=== PATIENT | male | born 1980 | race Caucasian/White ===

== ENCOUNTER 2023-07-05 18:07 | Outpatient (REF) | payer OTHER, SELFPAY ==
[2023-07-05 15:26] LABS: ALT 63 U/L (16-63); AST 34 U/L (15-37); Alkaline Phosphatase 69 U/L (46-116); Anion Gap 8.2 mmol/L (3-11); BUN 14 mg/dL (7-18); Bilirubin, Total 0.4 mg/dL (0.2-1.0); CO2 27.8 mmol/L (21.0-32.0); Calcium 9.2 mg/dL (8.5-10.1); Calculated LDL 109 mg/dL (<100); Chloride 99 mmol/L (98-107); Cholesterol 152 mg/dL (<200); Estimated GFR 97.58 (mL/min/1.73m2); Glucose 96 mg/dL (74-106); HDL Cholesterol 29 mg/dL (40-60); Lipase 23 U/L (16-77); Potassium 4.3 mmol/L (3.5-5.1); Sodium 135 mmol/L (136-145); Total Protein 6.9 g/dL (6.4-8.2); Triglyceride 71 mg/dL (<150)
[2023-07-06 10:22] LABS: Hepatitis C Ab w Rflx HCV PCR Negative (Negative)
[2023-07-06 10:38] LABS: HIV-1/2 Ag & Ab Screen Negative (Negative)
== END 2023-07-05 18:08 | disposition home or self-care (01) ==
LOC: NCHCN 18:07
PROVIDERS: Visit Provider Nurse Practitioner Family
DX: Z00.00 Encounter for general adult medical examination without abnormal findings (principal); R10.9 Unspecified abdominal pain; Z11.4 Encounter for screening for human immunodeficiency virus [HIV]; Z11.59 Encounter for screening for other viral diseases; E78.89 Other lipoprotein metabolism disorders
CPT/HCPCS: 80053; 80061; 83690; 86803; 87389